=== PATIENT | female | born 1975 | race Caucasian/White ===

== ENCOUNTER 2022-10-22 07:47 | Inpatient (IN) | payer BC ==
[~2022-10-22] VITALS: Ht 162.6 cm; Wt 79.4 kg
[2022-10-22 08:50] VITALS: PULSE 80; RESP 18; TEMP 98.7; O2SAT 96
[2022-10-22] MEDS ORDERED: SUCCINYLCHOLINE CHLORIDE 20 MG/ML(QUELICIN) ONE (11:36)
[2022-10-22] MEDS ORDERED: fentaNYL CITRATE/PF 100 MCG/2 ML AMP ONE (11:36)
[2022-10-22] MEDS ORDERED: BUPIVACAINE /DEX PF 0.75% SPINAL 2 ML AMP INJ ONE (11:36)
[2022-10-22] MEDS ORDERED: NEOSTIGMINE METHYLSULFATE 1 MG/ML, 10 ML VIAL ONE (11:36)
[2022-10-22] MEDS ORDERED: NS IRRIG SOLN 1000 ML IR ONE (11:36)
[2022-10-22] MEDS ORDERED: OXYTOCIN 10 UNIT/ML VIAL ONE (11:36)
[2022-10-22] MEDS ORDERED: SEVOFLURANE 15 MIN GAS INH ONE (11:36)
[2022-10-22] MEDS ORDERED: LR 1,000 ML IV.SOLN IV ONE (11:36)
[2022-10-22] MEDS ORDERED: DEXAMETHASONE SOD PHOSPHATE 4 MG/ML VIAL ONE (11:36)
[2022-10-22] MEDS ORDERED: MORPHINE SULFATE 10MG/10ML PF AMP ONE (11:36)
[2022-10-22] MEDS ORDERED: GLYCOPYRROLATE 0.2 MG/ML VIAL ONE (11:36)
[2022-10-22] MEDS ORDERED: ROCURONIUM BROMIDE 10 MG/ML (ZEMURON) ONE (11:36)
[2022-10-22] MEDS ORDERED: ceFAZolin SODIUM 2 GM VIAL ONE (11:36)
[2022-10-22] MEDS ORDERED: ONDANSETRON HCL 4 MG/2 ML VIAL ONE (11:36)
[2022-10-22] MEDS ORDERED: PROPOFOL 200MG/ 20ML VIAL (DIPRIVAN) IV ONE (11:36)
[2022-10-22] MEDS ORDERED: KETOROLAC TROMETHAMINE 60 MG/2 ML VIAL IM PRN (13:15)
[2022-10-22] MEDS ORDERED: METOCLOPRAMIDE HCL 10 MG/2 ML VIAL IVP PRN (13:15)
[2022-10-22] MEDS ORDERED: MORPHINE SULFATE 10MG/10ML PF AMP SP SCH (13:15)
[2022-10-22] MEDS ORDERED: ACETAMINOPHEN I.V. 1000 MG 100 ML IV ONE ×2 (13:15→14:14)
[2022-10-22] MEDS ORDERED: NALOXONE HCL 0.4 MG/ML AMP (NARCAN) IVP PRN ×2 (13:15→14:15)
[2022-10-22] MEDS ORDERED: ONDANSETRON HCL 4 MG/2 ML VIAL IVP PRN (13:15)
[2022-10-22] MEDS ORDERED: DIPHENHYDRAMINE INJ 50 MG/ML VIAL IV PRN (13:15)
[2022-10-22] MEDS ORDERED: OXYCODONE/ACETAMINOPHEN 5-325 TABLET PO PRN (14:15)
[2022-10-22] MEDS ORDERED: BISACODYL 10 MG/SUPPOSITORY RC PRN (14:15)
[2022-10-22] MEDS ORDERED: DIPHTH,PERTUSS(ACELL),TET VAC 0.5 ML VIAL (Tdap) I.M. PRN (14:15)
[2022-10-22] MEDS ORDERED: MEASLES,MUMPS&RUBELLA VACC/PF 12500 UNIT/0.5 ML VIAL SUBQ PRN (14:15)
[2022-10-22] MEDS ORDERED: ANUSOL 1 EA SUPP.RECT (PREPARATION H) RC PRN (14:15)
[2022-10-22] MEDS ORDERED: LR 1,000 ML IV SCH (14:15)
[2022-10-22] MEDS ORDERED: TEMAZEPAM 15 MG CAPSULE PO PRN (14:15)
[2022-10-22] MEDS ORDERED: OXYCODONE/ACETAMINOPHEN *10*mg/325 mg TABLET PO PRN (14:15)
[2022-10-22] MEDS ORDERED: LANOLIN 7 GM OINT. TP PRN (14:15)
[2022-10-22] MEDS ORDERED: DIPHENHYDRAMINE INJ 50 MG/ML VIAL ONE (14:39)
[2022-10-22 14:45] VITALS: BP_SYST 116
[2022-10-22] MEDS: OXYTOCIN/0.9 % SODIUM CHLORIDE 1,000 ML IV SCH ×2 (16:09→23:56)
[2022-10-22] MEDS: SIMETHICONE 80 MG TAB.CHEW PO PRN ×3 (17:03→23:56)
[2022-10-22] MEDS: CEFAZOLIN 1 GM IVPB PREMIX 50 ML IV SCH ×2 (18:05→23:56)
[2022-10-22] MEDS: SENNOSIDES/DOCUSATE SODIUM 1 TAB TABLET(SENOKOT-S) PO SCH (20:17)
[2022-10-22] MEDS: DOCUSATE SODIUM 100 MG CAPSULE PO SCH (20:17)
[2022-10-23] MEDS: CEFAZOLIN 1 GM IVPB PREMIX 50 ML IV SCH (06:19)
[2022-10-23] MEDS: SIMETHICONE 80 MG TAB.CHEW PO PRN ×3 (06:19→21:02)
[2022-10-23] MEDS: KETOROLAC TROMETHAMINE 30 MG VIAL IVP SCH ×3 (06:20→18:04)
[2022-10-23 06:52] LABS: BASOPHILS % (AUTO) 0.2 % (0.0-2.0); EOSINOPHILS % (AUTO) 0.3 % (0.0-4.0); HEMOGLOBIN 10.7 g/dL (12.0-16.0); LYMPHOCYTES # (AUTO) 2.2 K/uL (1.0-5.5); LYMPHOCYTES % (AUTO) 17.7 % (20.5-51.5); MEAN CORPUSCULAR HEMOGLOBIN 26 pg (27-31); MEAN CORPUSCULAR HGB CONC 32 % (32-36); MEAN CORPUSCULAR VOLUME 81 fL (79.0-98.0); MONOCYTES # (AUTO) 1.1 K/uL (0.0-1.0); MONOCYTES % (AUTO) 8.9 % (1.7-9.3); NEUTROPHILS # (AUTO) 8.9 K/uL (1.8-7.7); NEUTROPHILS % (AUTO) 72.9 % (40.0-70.0); PLATELET COUNT (AUTO) 273 K/uL (130-430); RED BLOOD CELL COUNT(AUTO) 4.08 MIL/uL (4.2-6.2); RED CELL DISTRIBUTION WIDTH 13.9 % (9.0-15.0); WHITE BLOOD COUNT (AUTO) 12.2 K/uL (4.8-10.8)
[2022-10-23] MEDS: DOCUSATE SODIUM 100 MG CAPSULE PO SCH ×2 (09:05→21:01)
[2022-10-23] MEDS: SENNOSIDES/DOCUSATE SODIUM 1 TAB TABLET(SENOKOT-S) PO SCH (21:01)
[2022-10-24] MEDS: KETOROLAC TROMETHAMINE 30 MG VIAL IVP SCH (00:07)
[2022-10-24] MEDS: SIMETHICONE 80 MG TAB.CHEW PO PRN ×2 (00:08→06:30)
[2022-10-24] MEDS ORDERED: IBUPROFEN 600 MG TABLET PO SCH (06:00)
== END 2022-10-24 18:35 | disposition home or self-care (01) | DRG 743 ==
LOC: SMU 07:47 → SPU 15:20
PROVIDERS: ADMIT Specialist; ATTEND Specialist
PROC: 0UN90ZZ Release Uterus, Open Approach (ICD-10-PCS; 2022-10-22)
PROC: 0UB90ZZ Excision of Uterus, Open Approach (ICD-10-PCS; principal; 2022-10-22 11:36)
DX: D25.1 Intramural leiomyoma of uterus (principal); N92.0 Excessive and frequent menstruation with regular cycle; N80.03 Adenomyosis of the uterus; N73.6 Female pelvic peritoneal adhesions (postinfective); Z90.710 Acquired absence of both cervix and uterus
CPT/HCPCS: 36415; 85025; 87081; 88305; J0131; J0330; J0690; J1100; J1200; J1885; J2274; J2405; J2590; J2704; J2710; J3010; J3490; J7120